=== PATIENT | male | born 1965 | race African-American/Black ===

== ENCOUNTER 2023-09-10 06:41 | Day surgery (SDC) | payer OTHER ==
[~2023-09-10] VITALS: Ht 185.4 cm; Wt 88.5 kg
[2023-09-10] MEDS ORDERED: MEPERIDINE 100 MG INJ. 100 MG/ML VIAL ONE (07:19)
[2023-09-10] MEDS ORDERED: MIDAZOLAM HCL 5 MG/5 ML VIAL ONE (07:19)
[2023-09-10 07:46] VITALS: O2SAT 100
[2023-09-10 13:41] VITALS: BP_SYST 137; PULSE 75; RESP 17
== END 2023-09-10 09:55 | disposition home or self-care (01) ==
LOC: SDS 06:41 → SMU 06:42 → SDS 09:55
PROVIDERS: ATTEND Internal Medicine Gastroenterology
DX: K62.5 Hemorrhage of anus and rectum (principal); D12.4 Benign neoplasm of descending colon; K64.8 Other hemorrhoids; F17.210 Nicotine dependence, cigarettes, uncomplicated
CPT/HCPCS: 45385; 88305; 99153; 99152; G0378; J2250; J2175